=== PATIENT | female | born 2000 | race Hispanic/Latino ===

== ENCOUNTER 2025-01-19 16:44 | Observation (INO) | payer OTHER ==
[~2025-01-19] VITALS: Ht 160 cm; Wt 121.0 kg
[~2025-01-19 16:44] MED LIST: IBUPROFEN600 MG PO; NORCO 5-325 TA1 EACH PO
[2025-01-19] MEDS ORDERED: HYDROmorphone HCL 1 MG/ML SYR IV ONE (17:00)
[2025-01-19 17:01] LABS: BASOPHILS 0.3 % (0.1-1.2); EOSINOPHILS 0.6 % (0.7-5.8); LYMPHOCYTES 25.9 % (19.3-51.7); MCH 27.9 PG (25.6-32.2); MCHC 32.4 g/dL (32.2-35.5); MCV 86.2 fL (79.4-94.8); MONOCYTES 5.2 % (4.7-12.5); NEUTROPHILS 67.5 % (34.0-71.1); RBC 4.91 M/uL (3.93-5.22)
[2025-01-19] MEDS ORDERED: MAGNESIUM100 MG PO (17:06)
[2025-01-19] MEDS ORDERED: COD LIVER OIL1 EAC1 PO (17:06)
[2025-01-19 17:30] LABS: ALCOHOL, MEDICAL <3 ng/dL (<3); ALT (SGPT) 108 U/L (14-59); AST (SGOT) 65 U/L (15-37); GLOMERULAR FILTRATION RATE,EST 69 mL/min (>60); PROTEIN, TOTAL 8.7 g/dL (6.4-8.2); UREA NITROGEN 21 mg/dL (7-18)
[2025-01-19] MEDS ORDERED: ACETAMINOPHEN 325 MG TAB PO PRN (18:30)
[2025-01-19] MEDS ORDERED: HYDROmorphone HCL 1 MG/ML SYR IV PRN ×2 (18:30→20:15)
[2025-01-19] MEDS ORDERED: LACTATED RINGER'S 1,000 ML IV SCH (18:30)
[2025-01-19 18:35] LABS: BLOOD/HGB, URINE NEGATIVE (Negative); KETONE, URINE TRACE (Negative); LEUK ESTERASE, URINE NEGATIVE (negative); NITRITE, URINE NEGATIVE (negative)
[2025-01-19 18:43] LABS: EPITHELIAL CELLS, URINE SQUAMOUS 1+ /lpf (0-1+)
[2025-01-19 18:44] LABS: BACTERIA, URINE 1+ /hpf (negative); CASTS, URINE NONE SEEN \\lpf; CRYSTALS, URINE NONE SEEN (0-1+); REFLEX CULTURE, URINE No (No)
[2025-01-19 18:47] LABS: AMPHETAMINES, URINE NEGATIVE (NEGATIVE); BARBITURATES, URINE NEGATIVE (NEGATIVE); BENZODIAZEPINE, URINE NEGATIVE (NEGATIVE); CANNABINOID, URINE NEGATIVE (NEGATIVE); COCAINE, URINE NEGATIVE (NEGATIVE); ECSTASY, URINE NEGATIVE (NEGATIVE); FENTANYL, URINE NEGATIVE (NEGATIVE); METHADONE, URINE NEGATIVE (NEGATIVE); OPIATES, URINE POSITIVE (NEGATIVE); OXYCODONE, URINE NEGATIVE (NEGATIVE); PHENCYCLIDINE, URINE NEGATIVE (NEGATIVE)
[2025-01-19] MEDS ORDERED: ACETAMINOPHEN 500 MG TAB PO PRN (19:15)
[2025-01-19] MEDS ORDERED: MORPHINE SULFATE 10 MG/ML VIAL IV PRN (19:15)
[2025-01-19] MEDS ORDERED: IBUPROFEN 600 MG TAB PO PRN (19:15)
[2025-01-19] MEDS ORDERED: KETOROLAC TROMETHAMINE 30 MG/ML VIAL IV PRN (19:15)
[2025-01-19 19:29] VITALS: BP 148/83
--- NOTE | 2025-01-19 20:45 | NUR ---
PT TO FLOOR WITH ED RN APPROX 1920. REPORT RECEIVED. PT ALERT AND ORIENTED. PT ABLE TO TRANSFER SELF TO BED. VS OBTAINED. SpO2 100% ON RA. 2L/NC AND CPOX PLACED PER ORDER. PT DENIES SOB. REPORTS RIGHT SIDE PAIN 10/06. PRN FOR PAIN ADMIN PER EMAR. LUNGS CLEAR/DIM THROUGHOUT. INCENTIVE SPIROMETER PROVIDED WITH EDUCATION. PT DEMONSTRATES PROPER USE. PT UP TO BR WITH MINIMAL SBA TO VOID. BACK TO BED, JOSE WELL. SANDWICH BOX PROVIDED. PT/MOM DENY QUESTIONS OR CONCERNS. PT ORIENTED TO ROOM AND NURSE CALL LIGHT. NO FURTHER NEEDS. CALL LIGHT IN REACH.
--- NOTE | 2025-01-19 22:24 | NUR ---
PT AWAKE IN BED. SpO2 100% ON 2L/NC. HR 60'S. RESPIRATIONS EVEN. PT REPORTS RIGHT SIDE PAIN 08/06. PRN FOR PAIN ADMIN PER EMAR. UP TO BR WITH MINIMAL SBA TO VOID. BACK TO BED, JOSE WELL. NO FURTHER NEEDS. CALL LIGHT IN REACH.
[2025-01-20 00:49] VITALS: BP 138/65
[2025-01-20 00:50] VITALS: BP 138/65
--- NOTE | 2025-01-20 00:54 | NUR ---
PT REPORTS RIGHT SIDE PAIN 10/06. PRN FOR PAIN ADMIN PER EMAR. PT DENIES SOB AT REST. SpO2 100% ON 2L/NC. RESPIRATIONS EVEN. CPOX IN PLACE. VS AND I&O OBTAINED. NO FURTHER NEEDS. CALL LIGHT IN REACH.
--- NOTE | 2025-01-20 02:48 | NUR ---
ROUNDING NOTE. PT AWAKE IN BED. REPORTS DIFFICULTY "TAKING A DEEP BREATH WHILE SLEEPING." DENIES SOB. SpO2 100% ON 2L/NC. HR 60'S. 2PA TO ASSIST TO REPOSITION IN BED. HOB ELEVATED. PT CONTINUES I.S. USE. FRESH WATER PROVIDED. ICE PACK PROVIDED FOR COMFORT. NO FURTHER NEEDS. CALL LIGHT IN REACH.
--- NOTE | 2025-01-20 04:19 | NUR ---
PT AWAKE IN BED. REPORTS CONTINUED RIGHT SIDE PAIN. PRN FOR PAIN ADMIN PER EMAR. ASSESSMENT UNCHANGED. 2L/NC AND CPOX IN PLACE. SpO2 100%. HR LOW 70'S. NO FURTHER NEEDS. CALL LIGHT IN REACH.
[2025-01-20 05:16] LABS: BASOPHILS 0.3 % (0.1-1.2); EOSINOPHILS 0.6 % (0.7-5.8); LYMPHOCYTES 29.3 % (19.3-51.7); MCH 28.7 PG (25.6-32.2); MCHC 33.3 g/dL (32.2-35.5); MCV 86.2 fL (79.4-94.8); MONOCYTES 6.8 % (4.7-12.5); NEUTROPHILS 62.7 % (34.0-71.1); RBC 4.21 M/uL (3.93-5.22)
[2025-01-20 05:52] VITALS: BP 120/58
[2025-01-20 05:53] VITALS: BP 120/58
--- NOTE | 2025-01-20 06:42 | NUR ---
PT RESTING WITH EYES CLOSED. AWAKENS EASILY. VS AND I&O OBTAINED. NO C/O PAIN AT THIS TIME. UP TO BR WITH MINIMAL SBA TO VOID. BACK TO BED, JOSE WELL. NO FURTHER NEEDS. CALL LIGHT IN REACH.
--- NOTE | 2025-01-20 07:15 | NUR ---
IN TO ROOM FOR INTRODUCTION AFTER REPORT, PT AWAKE ON 2L NC OXYGEN 98%. REPORTS FEELING BETTER TODAY, SORE RIGHT SIDE CHEST WHERE RIB FX IS - IMPROVED WITH MEDS AND ICE PACK. PT AMB STEADY TO BATHROOM TO VOID 100 ML URINE - BACK TO BED CALL LIGHT IN REACH - DENIES NEEDS.
--- NOTE | 2025-01-20 09:33 | NUR ---
JANET WALKED INTO ROOM AND UPATED PT WHITE BOARD, OFFERED A SHOWER, OFFERED ORAL CARE, AND OFFERED A LINEN CHANGE. PT STATED SHE WANTED A SHOWER AND COULD AMBULATE PROPERLY. JANET COLEMAN STAYED IN THE ROOM WHILE SHE SHOWERED AND DID ORAL CARE TO CHANGE PT LINENS. JANET CLOEMAN ALSO BROUGHT A NEW ICE PACK AND BROUGHT HER ICE WATER. PT STATED NO FURTHER NEEDS, CALL LIGHT LEFT WITHIN REACH.
[2025-01-20 10:15] VITALS: BP 132/95
--- NOTE | 2025-01-20 10:20 | NUR ---
Spoke with Evi. She lives with her mom. Denies issues getting in or out of the home. She does not have a pcp and does not currently have medical insurance. She states she was under her dads insurance but dad and mom are and she lost her insurance. She has graduated from college and also thinks this may have something to do with losing her insurance. I let her know I will contact eligibility and ask them to review if she qualifies for OHP. I will also assit her to find a pcp if she qualifies for OHP. Pt denies other needs. I return when I hear if she qualifies for OHP. We did discuss, most will not schedule pt if they do not have some type of insurance. Will follow up when I have further info.
--- NOTE | 2025-01-20 10:30 | NUR ---
UR CLINICAL REVIEW: MCG-PER MCG REVIEW MEETS OBS FOR RIB FRACTURE WITH NEED FOR PAIN CONTROL, SERIAL MONITORING AND POSSIBLE SUPPLEMENTAL OXYGEN SELF PAY OBS 01/19/25 @ 1646 ORDER MATCHES REG NO AUTH REQUIRED FOR OBS VISIT DISCHARGE HOME LIKELY 01/20/25 NEXT REVIEW: 01/21/25
--- NOTE | 2025-01-20 10:40 | NUR ---
MED REC COMPLETE
[2025-01-20 14:08] VITALS: BP 126/64
[2025-01-20] MEDS ORDERED: IBUPROFEN600 MG PO (14:31)
[2025-01-20] MEDS ORDERED: HYDROMORPHONE HC4 MG PO (14:32)
[2025-01-20] MEDS ORDERED: ACETAMINOPHEN500 MG PO (14:32)
--- NOTE | 2025-01-20 14:36 | NUR ---
REMOVED PATIENT'S L WRIST AND L AC IV PER NURSE REQUEST. PATIENT REPORTED MOTHER IS BRINGING CLOTHES FOR PATIENT TO DISCHARGE IN. PATIENT DENIES FURTHER NEEDS AT THIS TIME. CALL LIGHT AND PERSONAL BELONGINGS ARE WITHIN REACH. IVS REMOVED WNL, WRAPPED WITH GAUZE AND COBAN.
--- NOTE | 2025-01-20 15:00 | NUR ---
in room with dr noble - patrice to dc pt home, written education reviewed w/ pt. pt denies needs ambulates in room.
--- NOTE | 2025-01-22 14:52 | HP ---
[facility] [address], [place] [address] Signed ADMISSION DATE: 01/19/2025 REASON FOR ADMISSION: Blunt force trauma from horse accident with rib fracture and tiny apical pneumothorax. HISTORY: This 24-year-old obese dark-skinned woman is accompanied by her mother. She and her mother were riding horses this afternoon (both were helmeted) when the horse "went crazy" and began bucking. The patient had dismounted and landed on her right side of her chest and immediately had chest wall pain. She had no shortness of breath or other similar problem, but she presented to the emergency room, where she was thoroughly evaluated by Dr. Mata with a chest x-ray that was negative and a CT scan of the abdomen and pelvis and chest, which showed a tiny right apical pneumothorax. A nondisplaced acute fracture of the right lateral 5th rib and a few foci of right-sided subpleural consolidation consistent with contusion or atelectasis. She had no intraabdominal visceral abnormality. She is admitted for further evaluation and care. PAST MEDICAL HISTORY: Remarkable only for obesity. She takes no medications on a daily basis. She does not smoke. She never had surgery. ALLERGIES: She has no known drug allergies. 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 Her mother is Dr. Zoe Stone, a former CCO & PRESIDENT at [employer]. REVIEW OF SYSTEMS: She denies any shortness of breath at this time. She has some right lateral chest wall pain. She has had no hemoptysis. She denies any other complaints, specifically no neck pain, head pain, abdominal pain, or other abnormality and no extremity problems. PHYSICAL EXAMINATION: GENERAL: This is a pleasant dark-skinned woman, who is alert and oriented without sign of systemic toxicity. VITAL SIGNS: Pulse is 102, temperature 98, respirations 21, blood pressure 137/81, O2 saturation 99% on room air. NECK: Trachea is midline. She has no jugular venous distention. CHEST: Reasonably normal respiratory excursion bilaterally. Chest is clear Electronically Signed By: LEVI REBOLLAR MD 01/22/25 1452 PATIENT NAME: SONG MCNALLY HISTORY AND PHYSICAL DATE OF : [birth year] REPORT #: [id number] PHYSICIAN: LEVI REBOLLAR MD PCP: NO PRIMARY CARE PHYSICIAN REPORT IS CONFIDENTIAL AND NOT TO BE RELEASED WITHOUT AUTHORIZATION [facility] [address], [place] [address] Signed bilaterally. HEART: Regular. ABDOMEN: Obese, but soft, easily palpated. There is no mass or tenderness. No ascites. EXTREMITIES: Show no clubbing, cyanosis, edema or angulation deformity. There is mild tenderness to the right lateral chest wall. NEUROLOGIC: She is alert and oriented. Extraocular eye movements are normal. She moves all extremities. LABORATORY STUDIES: Chest x-ray was reviewed, which was normal. I did not see the rib fracture on the plain x-ray nor really the pneumothorax per se. No tracheal shift. There is no effusion. The liver and spleen and other intraabdominal organs appear to be unharmed. I am unable to adjust contrast on the console to better identify the parenchymal issues previously noted. ASSESSMENT: The patient has an unifocal rib fracture on the right side as diagnosed by CT scan of the chest with a minimal apical pneumothorax. Observation and pain control are appropriate as well as supplemental nasal cannula oxygen. The chance of progression to a larger pneumothorax is not great, though it is not impossible either and observation and pain control would be appropriate at this point. Very likely, she will be able to be discharged tomorrow. A chest x-ray will be performed in the morning to assess for pneumothorax or other problem. If she should have shortness of breath or other pulmonary problems, she will advise her nurse immediately and repeat x-ray to be done promptly at that point. We did discuss the natural history of rib fractures as it relates to healing and healing times. She and her mother understand this much better at this time. MD PARKER Perez/MODL /[id number] cc: Dr. Vincenzo Mata Electronically Signed By: LEVI REBOLLAR MD 01/22/25 1452 PATIENT NAME: SONG MCNALLY HISTORY AND PHYSICAL DATE OF : [birth year] REPORT #: [id number] PHYSICIAN: LEVI REBOLLAR MD PCP: NO PRIMARY CARE PHYSICIAN REPORT IS CONFIDENTIAL AND NOT TO BE RELEASED WITHOUT AUTHORIZATION [facility] [address] [place] [id number] Signed [facility] Copies: ~ Electronically Signed By: LEVI REBOLLAR MD 01/22/25 1452 PATIENT NAME: SONG MCNALLY TRAVIS HISTORY AND PHYSICAL DATE OF : [birth year] REPORT #: [id number] PHYSICIAN: LEVI REBOLLAR MD PCP: NO PRIMARY CARE PHYSICIAN REPORT IS CONFIDENTIAL AND NOT TO BE RELEASED WITHOUT AUTHORIZATION
== END 2025-01-20 15:05 | disposition home or self-care (01) ==
LOC: ED 16:44 → MS 16:46
PROVIDERS: Emergency Medicine; ADMIT Surgery; ATTEND Surgery
DX: J93.9 Pneumothorax, unspecified (principal); S22.31XA Fracture of one rib, right side, initial encounter for closed fracture; V80.010A Animal-rider injured by fall from or being thrown from horse in noncollision accident, initial encounter
CPT/HCPCS: 36415; 71045; 71260; 74177; 80053; 80307; 81001; 84702; 85025; 94762; 96374; 96375; 96376; 99285-25; A9270; G0378; G0480; J1171; J1885; J2405; J7121; Q9967